=== PATIENT | male | born 1990 | race Caucasian/White ===

== ENCOUNTER 2019-09-08 13:06 | Emergency (ER) | payer SELFPAY ==
[~2019-09-08] VITALS: Ht 175.3 cm; Wt 73.9 kg
[2019-09-08 14:08] VITALS: BP 138/85; Ht 175.3 cm; Wt 73.9 kg
== END 2019-09-08 16:20 | disposition left against medical advice (07) ==
LOC: ED 13:06
DX: L53.9 Erythematous condition, unspecified (principal); W57.XXXA Bitten or stung by nonvenomous insect and other nonvenomous arthropods, initial encounter; Y93.89 Activity, other specified; Y92.89 Other specified places as the place of occurrence of the external cause; Y99.8 Other external cause status